=== PATIENT | female | born 1965 | race Caucasian/White ===

== ENCOUNTER → 2020-09-09 14:34 | Outpatient (BNVA) | payer OTHER, SELFPAY | PROVIDERS: PCP Internal Medicine; Visit Provider Surgery ==

== ENCOUNTER → 2020-09-15 12:42 | Outpatient (BNV) | payer OTHER, SELFPAY | PROVIDERS: PCP Internal Medicine; Visit Provider Internal Medicine Medical Oncology | DX: M89.8X9 Other specified disorders of bone, unspecified site (principal); Z85.3 Personal history of malignant neoplasm of breast; D75.1 Secondary polycythemia | CPT/HCPCS: 99213; 99214 ==

== ENCOUNTER 2020-10-01 08:48 | Outpatient (REF) | payer OTHER, SELFPAY ==
[2020-10-01 09:02] LABS: MANUAL DIFF FLAG NO
[2020-10-01 09:05] LABS: Basophils Absolute Auto 0.1 X10*3/uL (0.0-0.2); Basophils Percent Auto 0.8 % (0-2); Eosinophils Absolute Auto 0.1 X10*3/uL (0.0-0.4); Eosinophils Percent Auto 2.1 % (0-4); Hematocrit 44.6 % (37-47); Imm Gran Abs Auto 0.01 X10*3/uL (0.00-0.03); Imm Gran Pct Auto 0.2 % (0.0-0.4); Lymphocytes Absolute Auto 1.3 X10*3/uL (1.2-4.9); Lymphocytes Percent Auto 20.7 % (20-40); Mean Corpuscular HGB Conc 33.6 g/dl (31.0-35.0); Mean Corpuscular Hemoglobin 30.5 pg (27.0-33.0); Mean Corpuscular Volume 90.7 fL (80-98); Mean Platelet Volume 9.7 fL (9.4-12.3); Monocytes Absolute Auto 0.4 X10*3/uL (0.1-1.2); Monocytes Percent Auto 6.5 % (2-11); Neutrophils Absolute Auto 4.4 X10*3/uL (2.0-8.3); Neutrophils Percent Auto 69.7 % (45-73); Platelet Count 204 X10*3/uL (160-400); Red Blood Count 4.92 X10*6/uL (4.20-5.50); White Blood Count 6.3 X10*3/uL (4.8-10.8)
== END 2020-10-01 08:49 | disposition home or self-care (01) ==
LOC: HO.BBR 08:48
PROVIDERS: Visit Provider Internal Medicine Medical Oncology
DX: D75.1 Secondary polycythemia (principal)
CPT/HCPCS: 36415; 85014; 85018; 85025; 99195

== ENCOUNTER 2020-10-01 09:51 | Outpatient (REF) | payer OTHER, SELFPAY | END 2020-10-01 09:52 | disposition home or self-care (01) | LOC: HO.MAMMO 09:51 | PROVIDERS: PCP Internal Medicine; Visit Provider Internal Medicine | DX: Z13.89 Encounter for screening for other disorder (principal) ==

== ENCOUNTER 2020-10-11 08:29 | Outpatient (REF) | payer OTHER, SELFPAY ==
--- NOTE | ~2020-10-11 | MM_ITS ---
EXAMINATION: MM SCREENING DIGITAL BREAST TOMOSYNTHESIS, RIGHT CLINICAL INFORMATION: Right breast cancer status post lumpectomy 2009. 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 COMPARISON: Mammography: 10/06/2019, 09/30/2018, 09/19/2017, 09/14/2016 TECHNIQUE: Digital breast tomosynthesis is performed in both the craniocaudal and mediolateral oblique views along with computer-aided detection (CAD). Synthesized 2D images are generated from the tomosynthesis. FINDINGS: There are scattered areas of fibroglandular density (ACR BI-RADS breast composition Category b). There are post therapy changes with chronic mild scarring upper outer quadrant with benign dystrophic calcification within the scar along with surgical clips. The remainder of the breast is unremarkable. There is no developing density or interval mass or architectural abnormality or abnormal calcifications. No significant changes. MM/MM tomosynthesis screening RT IMPRESSION: No mammographic evidence of malignancy. ASSESSMENT: BI-RADS 2: Benign RECOMMENDATION: Routine annual mammography screening. This patient's information was entered into a reminder system with a target due date for their next mammogram.
== END 2020-10-11 08:30 | disposition home or self-care (01) ==
LOC: HO.MAMMO 08:29
PROVIDERS: Visit Provider Internal Medicine
DX: Z12.31 Encounter for screening mammogram for malignant neoplasm of breast (principal)
CPT/HCPCS: 77063; 77067

== ENCOUNTER 2020-10-15 14:01 | Outpatient (REF) | payer OTHER, SELFPAY ==
--- NOTE | ~2020-10-15 | MM_ITS ---
EXAMINATION: BONE DENSITOMETRY CLINICAL INDICATION: Bone loss. COMPARISON: Previous BD dated 10/27/2028 and baseline BD dated 08/19/2010. TECHNIQUE: Using a [employer] DXA System (software version: 13.1) manufactured by [employer], dual-energy x-ray absorptiometry was performed of the lumbar spine and left hip. The images are of good technical quality. Summary results are attached. FINDINGS: AP SPINE L1-L4: Current: BMD 1.066 g/cm2, Z-score -0.2, T-score -1.0, normal, 3.0% decrease from previous, 16.3% decrease from baseline (<5% change is not significant). Prior: BMD 1.099 g/cm2. Baseline: BMD 1.274 g/cm2. LEFT FEMUR, NECK: Current: BMD 0.867 g/cm2, Z-score -0.3, T-score -1.2, osteopenia. Prior: BMD 1.005 g/cm2. Baseline: BMD 1.146 g/cm2. LEFT FEMUR, TOTAL: Current: BMD 0.885 g/cm2, Z-score -0.4, T-score -1.0, normal, 13.6% decrease from previous, 20.8% decrease from baseline (<5% change is not significant). Prior: BMD 1.024 g/cm2. Baseline: BMD 1.118 g/cm2. IDENTIFIED RISK FACTORS: Early menopause, secondary osteoporosis. HISTORY OF FRACTURE: Fall, trauma, child. MEDICATIONS: Calcium supplements or multivitamin, vitamin D. MM/XR DEXA axial skeleton IMPRESSION: 1. DIAGNOSIS: Osteopenia based on the lowest T-score value of -1.2 in the femoral neck applying World Health Organization criteria. 2. 10-YEAR FRACTURE RISK PREDICTION, FRAX: Major osteoporotic fracture (clinical spine, forearm, hip or shoulder) 6.4%. Hip fracture 0.4%. 3. Treatment Recommendations: NOF guidelines recommend consideration for treatment in postmenopausal women and men age 50 and older presenting with the following: -A hip or vertebral (clinical or morphometric) fracture. -T-score less than or equal to -2.5 at the femoral neck or spine after appropriate evaluation to exclude secondary causes. -Low bone mass at the hip or spine and a 10-year fracture probability by FRAX of greater than or equal to 3% for hip fracture or greater than or equal to 20% for major osteoporotic fracture based on the [place] adapted WHO algorithm. 4. Other Recommendations: All treatment decisions require clinical judgment and consideration of individual patient factors, including patient preferences, comorbidities, previous drug use, risk factors not captured in the FRAX model (e.g. frailty, falls, vitamin D deficiency, increased bone turnover, interval significant decline in bone density) and possible under or overestimation of fracture risk by FRAX. Additional medical evaluation for secondary cause of low bone mineral density may be appropriate. FUTURE SCAN RECOMMENDATION: People with diagnosed cases of osteoporosis or at high risk for fracture should have regular bone mineral density tests. For patients eligible for Medicare, routine testing is allowed once every 2 years. The testing frequency can be increased to one year for patients who have rapidly progressing disease, those who are receiving or discontinuing medical therapy to restore bone mass, or have additional risk factors.
== END 2020-10-15 14:02 | disposition home or self-care (01) ==
LOC: HO.MAMMO 14:01
PROVIDERS: Visit Provider Internal Medicine Medical Oncology
DX: Z13.820 Encounter for screening for osteoporosis (principal); M89.8X9 Other specified disorders of bone, unspecified site; Z78.0 Asymptomatic menopausal state; Z79.899 Other long term (current) drug therapy
CPT/HCPCS: 77080

== ENCOUNTER → 2021-03-23 09:00 | Outpatient (BNVA) | payer OTHER, SELFPAY | PROVIDERS: PCP Internal Medicine; Referring Provider Internal Medicine; Visit Provider Surgery ==

== ENCOUNTER 2021-04-01 15:35 | Outpatient (REF) | payer OTHER, SELFPAY ==
[2021-04-01 15:50] LABS: MANUAL DIFF FLAG NO
[2021-04-01 15:52] LABS: Basophils Percent Auto 0.5 % (0-2); Eosinophils Absolute Auto 0.1 X10*3/uL (0.0-0.4); Hematocrit 38.2 % (37-47); Hemoglobin 12.8 g/dl (12.0-16.0); Imm Gran Abs Auto 0.01 X10*3/uL (0.00-0.03); Imm Gran Pct Auto 0.2 % (0.0-0.4); Lymphocytes Absolute Auto 1.6 X10*3/uL (1.2-4.9); Lymphocytes Percent Auto 26.8 % (20-40); Mean Corpuscular HGB Conc 33.5 g/dl (31.0-35.0); Mean Corpuscular Hemoglobin 30.6 pg (27.0-33.0); Mean Corpuscular Volume 91.4 fL (80-98); Mean Platelet Volume 9.5 fL (9.4-12.3); Monocytes Absolute Auto 0.5 X10*3/uL (0.1-1.2); Monocytes Percent Auto 8.4 % (2-11); Neutrophils Absolute Auto 3.6 X10*3/uL (2.0-8.3); Neutrophils Percent Auto 62.1 % (45-73); Platelet Count 173 X10*3/uL (160-400); Red Blood Count 4.18 X10*6/uL (4.20-5.50); Red Cell Distribution Width 12.6 % (11.0-16.0); White Blood Count 5.9 X10*3/uL (4.8-10.8)
[2021-04-01 16:23] LABS: Alanine Aminotransferase 20 U/L (0-31); Albumin Level 4.1 g/dL (3.5-5.0); Alkaline Phosphatase 68 U/L (39-117); Anion Gap 11 (12-20); Aspartate Amino Transferase 19 U/L (5-31); Bilirubin Total 0.4 mg/dL (0.0-1.0); Blood Urea Nitrogen 11 mg/dL (9-16); Calcium 8.9 mg/dL (8.4-10.2); Carbon Dioxide 23 mmol/L (22-29); Chloride 111 mmol/L (96-108); Estimated Glomerular Filt Rate 54; Glucose Random 100 mg/dL (60-115); Potassium 3.8 mmol/L (3.3-5.1); Sodium 141 mmol/L (135-145); Total Protein 6.4 g/dL (6.5-8.0)
== END 2021-04-01 15:36 | disposition home or self-care (01) ==
LOC: HO.BBR 15:35
PROVIDERS: PCP Internal Medicine; Visit Provider Internal Medicine Medical Oncology
DX: D75.1 Secondary polycythemia (principal)
CPT/HCPCS: 36415; 80053; 85014; 85018; 85025; 99195

== ENCOUNTER 2021-10-13 15:23 | Outpatient (REF) | payer OTHER, SELFPAY ==
--- NOTE | ~2021-10-13 | MM_ITS ---
EXAMINATION: MM SCREENING DIGITAL BREAST TOMOSYNTHESIS, RIGHT CLINICAL INFORMATION: Left DCIS, status post mastectomy 10/31/2019. Right breast cancer status post lumpectomy, 2009. Due for yearly. COMPARISON: Mammography: 10/11/2020, 10/06/2019, 09/30/2018, 09/19/2017 TECHNIQUE: Digital breast tomosynthesis is performed in both the craniocaudal and mediolateral oblique views along with computer-aided detection (CAD). Synthesized 2D images are generated from the tomosynthesis. FINDINGS: There are scattered areas of fibroglandular density (ACR BI-RADS breast composition Category b). Post lumpectomy changes are again seen with stable scarring, surgical clips, and dystrophic calcifications at the lumpectomy site. There is no interval mass or architectural abnormality or developing density. No significant changes from prior studies. MM/MM tomosynthesis screening RT IMPRESSION: No significant changes from prior exams. Post surgical changes, stable. ASSESSMENT: BI-RADS 2: Benign RECOMMENDATION: Routine annual mammography screening. This patient's information was entered into a reminder system with a target due date for their next mammogram.
== END 2021-10-13 15:24 | disposition home or self-care (01) ==
LOC: HO.MAMMO 15:23
PROVIDERS: PCP Internal Medicine; Visit Provider Obstetrics & Gynecology
DX: Z12.31 Encounter for screening mammogram for malignant neoplasm of breast (principal)
CPT/HCPCS: 77063; 77067

== ENCOUNTER → 2021-10-14 15:31 | Outpatient (BNVA) | payer OTHER, SELFPAY | PROVIDERS: PCP Internal Medicine; Referring Provider Internal Medicine; Visit Provider Surgery ==

== ENCOUNTER 2021-10-20 14:11 | Outpatient (REF) | payer OTHER, SELFPAY | END 2021-10-20 14:12 | disposition home or self-care (01) | LOC: HO.BBR 14:11 | PROVIDERS: Visit Provider Internal Medicine Medical Oncology | DX: D75.1 Secondary polycythemia (principal) | CPT/HCPCS: 85018; 99195 ==

== ENCOUNTER 2022-02-16 09:38 | Outpatient (REF) | payer OTHER, SELFPAY ==
[2022-02-16 09:54] LABS: MANUAL DIFF FLAG NO
[2022-02-16 10:32] LABS: Basophils Absolute Auto 0.1 X10*3/uL (0.0-0.2); Eosinophils Absolute Auto 0.2 X10*3/uL (0.0-0.4); Eosinophils Percent Auto 4.7 % (0-4); Hematocrit 43.4 % (37.0-47.0); Hemoglobin 14.2 g/dl (12.0-16.0); Imm Gran Abs Auto 0.01 X10*3/uL (0.00-0.03); Imm Gran Pct Auto 0.2 % (0.0-0.4); Lymphocytes Absolute Auto 1.4 X10*3/uL (1.2-4.9); Lymphocytes Percent Auto 27.6 % (20-40); Mean Corpuscular HGB Conc 32.7 g/dl (31.0-35.0); Mean Corpuscular Hemoglobin 28.8 pg (27.0-33.0); Mean Platelet Volume 10.4 fL (9.4-12.3); Monocytes Absolute Auto 0.4 X10*3/uL (0.1-1.2); Monocytes Percent Auto 6.8 % (2-11); Neutrophils Absolute Auto 3.1 x10*3/uL (2.0-8.3); Neutrophils Percent Auto 59.7 % (45-73); Platelet Count 179 X10*3/uL (160-400); Red Blood Count 4.93 X10*6/uL (4.20-5.50); Red Cell Distribution Width 13.8 % (11.0-16.0); White Blood Count 5.2 X10*3/uL (4.8-10.8)
[2022-02-16 11:14] LABS: Alanine Aminotransferase 15 U/L (0-31); Albumin Level 4.2 g/dL (3.5-5.0); Alkaline Phosphatase 75 U/L (39-117); Anion Gap 13 (12-20); Aspartate Amino Transferase 15 U/L (5-31); Bilirubin Total 0.3 mg/dL (0.0-1.0); Blood Urea Nitrogen 21 mg/dL (9-16); Calcium 9.1 mg/dL (8.4-10.2); Carbon Dioxide 22 mmol/L (22-29); Chloride 112 mmol/L (96-108); Cholesterol 233 mg/dL; Estimated Glomerular Filt Rate > 60; Glucose Fasting 106 mg/dL (60-99); HDL Cholesterol 61 mg/dL; LDL Cholesterol Calculated 155 mg/dl; Magnesium 2.1 mg/dL (1.6-2.6); Potassium 4.7 mmol/L (3.3-5.1); Sodium 142 mmol/L (135-145); Total Protein 6.7 g/dL (6.5-8.0); Triglycerides 87 mg/dL
[2022-02-16 11:28] LABS: TSH reflex Free T4 1.61 uIU/mL (0.32-4.0); Vitamin D 25-OH Total 50.2 ng/mL (>30)
[2022-02-16 12:09] LABS: Folate 7.3 ng/mL (> or = 4.0); Vitamin B12 258 pg/mL (200-900)
[2022-02-18 12:32] LABS: SARS COV2 IgG NEGATIVE
[2022-02-20 08:51] LABS: CA 27.29 25 U/mL (<38)
== END 2022-02-16 09:39 | disposition home or self-care (01) ==
LOC: HO.LAB 09:38
PROVIDERS: Internal Medicine Medical Oncology; PCP Internal Medicine; Visit Provider Nurse Practitioner Family
DX: Z00.00 Encounter for general adult medical examination without abnormal findings (principal); Z13.29 Encounter for screening for other suspected endocrine disorder; M79.604 Pain in right leg; M79.605 Pain in left leg; E78.00 Pure hypercholesterolemia, unspecified; Z85.3 Personal history of malignant neoplasm of breast
CPT/HCPCS: 36415; 80053; 80061; 82306; 82607; 82746; 83735; 84443; 85025; 86300; 86769

== ENCOUNTER 2022-04-23 15:22 | Outpatient (REF) | payer OTHER, SELFPAY | END 2022-04-23 15:23 | disposition home or self-care (01) | LOC: HO.BBR 15:22 | PROVIDERS: Visit Provider Internal Medicine Medical Oncology | DX: D75.1 Secondary polycythemia (principal) | CPT/HCPCS: 85018; 99195 ==

== ENCOUNTER → 2022-09-23 14:15 | Outpatient (BNVA) | payer OTHER, SELFPAY | PROVIDERS: PCP Internal Medicine; Visit Provider Surgery | DX: Z13.89 Encounter for screening for other disorder (principal) ==

== ENCOUNTER 2022-10-19 15:13 | Outpatient (REF) | payer OTHER, SELFPAY ==
--- NOTE | ~2022-10-19 | MM_ITS ---
EXAMINATION: MM SCREENING DIGITAL BREAST TOMOSYNTHESIS, RIGHT CLINICAL INFORMATION: Screening. Asymptomatic. Patient is status post left mastectomy and right lumpectomy. COMPARISON: Mammography: October 13, 2021 and studies dating back to September 14, 2016 TECHNIQUE: Digital breast tomosynthesis is performed in both the craniocaudal and mediolateral oblique views along with computer-aided detection (CAD). Synthesized 2D images are generated from the tomosynthesis. FINDINGS: There are scattered areas of fibroglandular density (ACR BI-RADS breast composition Category b). Stable architectural distortion from previous surgery noted. No new abnormal dominant mass or suspicious grouping of microcalcifications appreciated. MM/MM tomosynthesis screening RT IMPRESSION: No significant changes from prior exam. ASSESSMENT: BI-RADS 2: Benign RECOMMENDATION: Routine annual mammography screening. This patient's information was entered into a reminder system with a target due date for their next mammogram.
== END 2022-10-19 15:14 | disposition home or self-care (01) ==
LOC: HO.MAMMO 15:13
PROVIDERS: PCP Internal Medicine; Visit Provider Internal Medicine
DX: Z12.31 Encounter for screening mammogram for malignant neoplasm of breast (principal)
CPT/HCPCS: 77063; 77067

== ENCOUNTER 2022-10-25 15:13 | Outpatient (REF) | payer OTHER, SELFPAY | END 2022-10-25 15:14 | disposition home or self-care (01) | LOC: HO.BBR 15:13 | PROVIDERS: PCP Internal Medicine; Visit Provider Internal Medicine Medical Oncology | DX: D75.1 Secondary polycythemia (principal) | CPT/HCPCS: 85018 ==

== ENCOUNTER → 2022-11-08 15:24 | Outpatient (BNVA) | payer OTHER, SELFPAY | PROVIDERS: PCP Internal Medicine; Visit Provider Surgery | DX: Z85.3 Personal history of malignant neoplasm of breast (principal) ==

== ENCOUNTER 2022-11-09 05:54 | Day surgery (SDC) | payer OTHER, SELFPAY ==
[2022-11-03 11:19] VITALS: BMI 29.2
--- NOTE | 2022-11-08 09:03 | HO.ANESPROP2 ---
HPI - Anesthesia Eval Consult details Narrative: 57yo F for Colonoscopy PMFSH Active Problems Active Problems: All Active Problems (Updated 09/23/22 @ 15:15 by Miguel Carbajal MD) Erythrocytosis (Acute) Skin lesion (Acute) Screening for diabetes mellitus (Acute) Adult general medical exam (Acute) Screening for hypothyroidism (Acute) Bilateral leg pain (Acute) Family history of colon cancer (Acute) Hypercholesterolemia (Acute) History of bilateral breast cancer (Acute) Past Medical History Medical History Family history of colon cancer History of bilateral breast cancer Hypercholesterolemia Family History Family History Father Hypertension Mother Hypertension Colon cancer Sister Kidney stone Brother High cholesterol Alcoholism Heart attack Maternal Aunt Colon cancer Surgical History Surgical History History of colonoscopy History of hysterectomy History of left mastectomy History of lumpectomy of right breast History of umbilical hernia repair Social History Social History Household Members: Spouse Housing: House Are you a primary floor care technician to a significant other at home: No Do you presently have visiting nurse or other home services: No Alcohol intake: current Alcohol intake frequency: other Alcohol type: wine Patient Tobacco Use Status: Never used Tobacco e-Cigarette/Vaping Use: Never Used Second Hand Smoke Exposure: No Use of substances other than those prescribed or required for medical reasons: No Are you DNR?: No Advance Directives: No Advance Directives Information Provided: Yes Advance Directives on File: No service: No Current occupational status: employed Cognitive needs: No Hearing needs: No Vision needs: Yes Meds Allergies Allergy/AdvReac Type Severity Reaction Status Date / Time No Known Allergies Allergy Verified 11/08/22 15:37 [No Known Allergies*] Home Medications Medication Instructions Recorded Confirmed Last Taken Type ascorbic acid (vitamin C) 500 mg 500 mg PO DAILY 11/03/22 11/09/22 Unknown History tablet,extended release (Vitamin C ER) [id number] 1 ea PO DAILY 11/03/22 11/09/22 Unknown History 20-250-50 mg(d)20-200-100 mg(n) tablets (Black Cohosh Menopause Complex) bromelains 100 mg chewable tablet 200 mg PO DAILY 11/03/22 11/09/22 Unknown History calcium carbonate 500 mg calcium 500 mg PO DAILY 11/03/22 11/09/22 Unknown History (1,250 mg) tablet cholecalciferol (vitamin D3) 10 10 mcg PO DAILY 11/03/22 11/09/22 Unknown History mcg (400 unit) capsule (Vitamin D3) citalopram 20 mg tablet 1 tab PO DAILY 11/03/22 11/09/22 Unknown History exemestane 25 mg tablet 25 mg PO DAILY 11/03/22 11/09/22 Unknown History magnesium 200 mg tablet 200 mg PO DAILY 11/03/22 11/09/22 Unknown History multivitamin 1 tab PO DAILY 11/03/22 11/09/22 Unknown History rosuvastatin 10 mg tablet 1 tab PO DAILY 11/03/22 11/09/22 Unknown History Exam Exam Date and Time: November 08, 2022 0903 Height,Weight and Vital Signs: Height 5 ft 3 in Weight 74.956 kg Pertinent Lab Results Pertinent Lab Results: Laboratory Tests 09/09/22 09/09/22 14:06 14:06 WBC 6.0 Hgb 14.4 Hct 43.6 Plt Count 208 Sodium 139 Potassium 4.0 Chloride 105 Carbon Dioxide 28 BUN 14 Creatinine 0.86 Assessment and Plan Assessment Anesthesia Assessment: Chart Reviewed
[2022-11-09 06:28] VITALS: BP 107/73; PULSE 62; RESP 16; TEMP 36.1; O2SAT 97
[2022-11-09] MEDS: Lactated Ringers 1,000 ML 100 ML IVCONT (06:39)
--- NOTE | 2022-11-09 07:22 | MHC.SHP ---
Pre-Procedural Eval Section A Date of Service: 11/09/22 Section B Chief Complaint: Family history of malignant neoplasm of digestive Details of Present Illness: has family history of colon cancer Relevant Social History: None Present Medications: None Medical History: Significant History ( hyperlipidemia, erythrocytosis) Allergies: Allergies Allergy/AdvReac Type Severity Reaction Status Date / Time No Known Allergies Allergy Verified 11/08/22 15:37 [No Known Allergies*] Review of Systems Sugical H&P ROS: Negative: Constitution, Cardiovascular, Respiratory, Neurological, Psychiatric, Hem-Onc, Allergic/Immunologic, Gastrointestinal, Genitourinary, Musculoskeletal, Integumentary, Endocrine and Eyes/Ears/Nose/Throat Exam Surgical H&P Exam: Normal: HEENT, Normal: Heart, Normal: Lungs, Normal: Extremities, Normal: Abdomen, Normal: Skin and Normal: Neurological Plan Diagnosis/Plan: Unchanged I have reviewed the history and physical and performed a pertinent physical examination on my patient. No changes have occurred unless specified. Time Spent With Patient Time: Total time managing care of this patient today ____ minutes.
--- NOTE | 2022-11-09 07:24 | MHC.SHP ---
Pre-Procedural Eval Section A Date of Service: 11/09/22 Section B Chief Complaint: Family history of malignant neoplasm of digestive Allergies: Allergies Allergy/AdvReac Type Severity Reaction Status Date / Time No Known Allergies Allergy Verified 11/08/22 15:37 [No Known Allergies*] Plan I have reviewed the history and physical and performed a pertinent physical examination on my patient. No changes have occurred unless specified. Time Spent With Patient Time: Total time managing care of this patient today ____ minutes.
--- NOTE | 2022-11-09 08:10 | W.PM.OPN ---
Operative Note Operative Note Date of Service: 11/09/22 Narrative: Preop diagnosis: Family history of colon cancer Postop diagnosis:external hemorrhoids, otherwise normal colonoscopy findings Procedure: Colonoscopy surgeon: Miguel Carbajal MD The patient is a 57-year-old female with a strong family history of colon cancer here for screening colonoscopy. She understood the technique of the procedure. She was aware of the risks, benefits, and alternatives. The patient was brought to the operating room and placed in left lateral decubitus position under monitored anesthesia care. A surgical time-out was done. A full digital rectal exam was done and this did not reveal any significant anal lesions. The tip of the Olympus colonoscope was gently introduced through the anal orifice advanced with insufflation all the way to the cecum. The cecum was intubated. The cecum was identified by visualization of the ileocecal valve as well as the appendiceal orifice. The cecal mucosa was unremarkable. The scope was gradually withdrawn with careful examination of the entire colonic mucosa being done with scope withdrawal. The patient had adequate bowel prep so it was unlikely that any lesion may have been missed. The rectum was reached and there were no lesions seen. The anal canal was unremarkable except for prominent external hemorrhoids. The scope was then withdrawn completely with desufflation The patient tolerated the procedure well. There were no immediate complications. Her next colonoscopy may be in the next 5 years because of her family history.
[2022-11-09 08:16] VITALS: BP 107/68; PULSE 82; RESP 16; TEMP 36.7; O2SAT 95
[2022-11-09 08:38] VITALS: BP 103/74; PULSE 70; RESP 16; TEMP 36.7; O2SAT 96
== END 2022-11-09 09:06 | disposition home or self-care (01) ==
PROVIDERS: PCP Internal Medicine; Visit Provider Surgery
PROC: 0DJD8ZZ Inspection of Lower Intestinal Tract, Via Natural or Artificial Opening Endoscopic (ICD-10-PCS; CPT 45378; principal; 2022-11-09 07:30)
DX: Z12.11 Encounter for screening for malignant neoplasm of colon (principal); Z80.0 Family history of malignant neoplasm of digestive organs; K64.4 Residual hemorrhoidal skin tags; E78.00 Pure hypercholesterolemia, unspecified; Z79.899 Other long term (current) drug therapy
CPT/HCPCS: 45378

== ENCOUNTER 2023-01-25 15:13 | Outpatient (REF) | payer OTHER, SELFPAY | END 2023-01-25 15:14 | disposition home or self-care (01) | LOC: HO.BBR 15:13 | PROVIDERS: PCP Internal Medicine; Visit Provider Internal Medicine Medical Oncology | DX: D75.1 Secondary polycythemia (principal) | CPT/HCPCS: 85018; 99195 ==

== ENCOUNTER 2023-02-17 09:28 | Outpatient (AMB) | payer OTHER, SELFPAY ==
--- NOTE | 2023-02-17 09:30 | MHC.PC.OV ---
Vital Signs 02/17/23 09:32 Height 5 ft 3 in Weight 167 lb 8 oz BMI 29.7 BP 110/70 Blood Pressure Location Lt brachial Position Sitting Pulse 70 Pulse Source Pulse Oximeter Pulse Oximetry (%) 97 Oxygen Delivery Method Room Air Intake Visit Reasons: Annual Exam Intake Note: Patient is here today for a physical. Elephant Keeper Required: No Melter Supervisor Open Hearth Furnace: Not Required per policy Accompanied by: Self / Same As Patient Allergies No Known Allergies [No Known Allergies*] Allergy (Verified 03/04/23 15:35) Medication List - Last Reconciled 03/04/23 by Dereck Bettencourt MD ascorbic acid (vitamin C) ER (Vitamin C ER) 500 mg PO DAILY [id number] 20-250-50(d)/20 -200-100 mg (n) (Black Cohosh Menopause Complex) 1 ea PO DAILY bromelains 200 mg PO DAILY calcium carbonate 500 mg PO DAILY cholecalciferol (vitamin D3) (Vitamin D3) 10 mcg PO DAILY exemestane 25 mg PO DAILY magnesium 200 mg PO DAILY multivitamin 1 tab PO DAILY rosuvastatin 10 mg PO DAILY varicella-zoster gE-AS01B (PF) 50 mcg/0.5 mL (Shingrix (PF)) 0.5 mL IM ONCE Tobacco use date assessed: 02/17/23 Dental Screening Dental Screen Date: 02/17/23 Did you have a dental visit in the last 12 months?: Yes Did you have a dental problem in the last 6 months where you did not have access to dental care?: No Was dental information given to patient?: Patient has dentist HPI Annual Exam HPI Details Patient presents to the office requesting an annual physical. Patient has stop the citalopram 3 months ago. Patient is requesting physical therapy for right leg pain. [facility] Medical History Family history of colon cancer History of bilateral breast cancer Hypercholesterolemia Surgical History History of colonoscopy History of hysterectomy History of left mastectomy History of lumpectomy of right breast History of umbilical hernia repair Family History Father Hypertension Mother Hypertension Colon cancer Mental health disorder Sister Kidney stone Brother High cholesterol Alcoholism Heart attack Maternal Aunt Colon cancer Other Substance use disorder Social History Household Members: Spouse Housing: House Are you a primary career guidance technician to a significant other at home: No Do you presently have visiting nurse or other home services: No Alcohol intake: current Alcohol intake frequency: other Alcohol type: wine Patient Tobacco Use Status: Never used Tobacco e-Cigarette/Vaping Use: Never Used Second Hand Smoke Exposure: No service: No Current occupational status: employed Cognitive needs: No Hearing needs: No Vision needs: Yes Questionnaire PHQ-9 Over the last 2 weeks, how often have you been bothered by any of the following problems? 1. Little interest or pleasure in doing things: not at all 2. Feeling down, depressed, or hopeless: not at all 3. Trouble falling or staying asleep, or sleeping too much: not at all 4. Feeling tired or having little energy: not at all 5. Poor appetite or overeating: not at all 6. Feeling bad about yourself - or that you are a failure or have let yourself or your family down: not at all 7. Trouble concentrating on things, such as reading the newspaper or watching television: not at all 8. Moving or speaking so slowly that other people could have noticed. Or the opposite - being so fidgety or restless that you have been moving around a lot more than usual: not at all 9. Thoughts that you would be better off or of hurting yourself in some way: not at all Total score: 0 Depression Screening Interpretation: Negative Source: Developed by Drs. Keenan Melgoza, Mandy Ocasio, Jean Laura and colleagues, with an educational joselito from [employer]. Thrive Questionnaire Date Thrive assessed: 02/17/23 I am a: Patient What is your living situation today?: I have a steady place to live Within the past 12 months, did the food you bought not last and you didn't have the money to get more?: Never true Within the past 12 months, did you worry whether your food would run out before you got money to buy more?: Never true Do you have trouble paying for medicines?: No Do you have trouble getting transportation to medical appointments?: No Do you have trouble paying your heating and electricity bill?: No Do you have trouble taking care of your child, family member or friend?: No Do you have trouble with day-to-day activities such as bathing, preparing meals, shopping, managing finances, etc.?: No Are you currently unemployed and looking for a job?: No Are you interested in more education?: No Currently or been in a relationship where the following occur: no concerns reported AUDIT C Alcohol Use Questionnaire (AUDIT-C) 1. How often do you have a drink containing alcohol?: 2-4 times a month 2. How many drinks containing alcohol do you have on a typical day when you are drinking?: 1 or 2 Total Score: 2 REGULO-7 AMB Questionnaire REGULO-7 Date REGULO - 7 assessed: 02/17/23 Feeling nervous, anxious, or on edge: 0 = Not at all Not being able to stop or control worryin = Not at all Worrying too much about different things: 0 = Not at all Trouble relaxin = Not at all Being so restless that it is hard to sit still: 0 = Not at all Becoming easily annoyed or irritable: 0 = Not at all Feeling afraid as if something awful might happen: 0 = Not at all Total REGULO-7 score (0-4 normal; 5-9 mild; 10-14 moderate; 15-21 severe): 0 Source: Developed by Drs. Keenan Melgoza, Mandy Ocasio, Jean Laura and colleagues, with an educational joselito from [employer]. Physical exam (Primary Care) Vital Signs: Last Vital Signs Pulse 70 02/17/23 09:32 BP 110/70 02/17/23 09:32 Pulse Ox 97 02/17/23 09:32 Oxygen Delivery Method Room Air 02/17/23 09:32 BMI result Body Mass Index 29.7 Tobacco/Smoking Status: Tobacco use Status Tobacco use date assessed 02/17/23 02/17/23 09:50 Patient Tobacco Use Status Never used Tobacco 02/17/23 09:50 e-Cigarette/Vaping Use Never Used 02/17/23 09:50 PHQ-9: PHQ-9 Score PHQ-9: Total score 0 02/17/23 09:50 Depression Screening Interpretation: Negative Thrive Assessment: Date of Thrive Assessment Date Thrive assessed 02/17/23 02/17/23 09:50 Currently or been in a relationship where the following occur: no concerns reported Const General: cooperative, healthy appearing and comfortable HENMT Head: Yes normal to inspection and Yes atraumatic Eyes General: appearance normal, both eyes and all related structures Neck Neck: Yes normal visual inspection and Yes full ROM Chest Chest palpation & inspection: normal inspection of the chest Resp Effort & Inspection: normal respiratory effort Auscultation: clear to auscultation bilaterally Cardio Jugular venous distension: no JVD Palpation: normal PMI Rate: regular rate Heart sounds: S1 normal heart sound present and S2 normal heart sound present GI Palpation (GI): Soft to palpation and No hepatosplenomegaly present Extrem General: Yes normal to inspection and Yes full ROM Assessment and Plan Assessment & Plan (1) Hypercholesterolemia: Comment: Blood work ordered. Will call with results. Code(s): E78.00 - Pure hypercholesterolemia, unspecified (2) Adult general medical exam: Code(s): Z00.00 - Encounter for general adult medical examination without abnormal findings Orders: Orders Lipid Panel 02/21/23 E78.00 - Pure hypercholesterolemia, unspecified Medications: New varicella-zoster gE-AS01B (PF) 50 mcg/0.5 mL (Shingrix (PF)) 0.5 mL IM ONCE 1 ea 0RF Coding Level of Care Code Est Pt Prev Care 40-64y(46696) Diagnoses Hypercholesterolemia E78.00 Adult general medical exam Z00.00
[2023-02-17 09:32] VITALS: BP 110/70; PULSE 70; O2SAT 97; BMI 29.7
== END 2023-02-17 10:09 | disposition home or self-care (01) ==
PROVIDERS: PCP Internal Medicine; Visit Provider Internal Medicine
DX: E78.00 Pure hypercholesterolemia, unspecified (principal); Z00.00 Encounter for general adult medical examination without abnormal findings
CPT/HCPCS: 99396

== ENCOUNTER 2023-02-21 09:44 | Outpatient (REF) | payer OTHER, SELFPAY | END 2023-02-21 09:45 | disposition home or self-care (01) | LOC: HO.LAB 09:44 | PROVIDERS: PCP Internal Medicine; Visit Provider Internal Medicine | DX: E78.00 Pure hypercholesterolemia, unspecified (principal) | CPT/HCPCS: 36415; 80061 ==

== ENCOUNTER 2023-03-29 13:59 | Outpatient (REF) | payer OTHER, SELFPAY ==
--- NOTE | ~2023-03-29 | MM_ITS ---
EXAMINATION: BONE DENSITOMETRY CLINICAL INDICATION: Follow up on bone mineral density. COMPARISON: Previous BD dated 10/15/2020 and baseline BD dated 08/19/2010. TECHNIQUE: Using a [employer] DXA System (software version: 13.1) manufactured by [employer], dual-energy x-ray absorptiometry was performed of the lumbar spine and left hip. The images are of good technical quality. Summary results are attached. FINDINGS: LEFT FEMUR, NECK: Current: BMD 0.756 g/cm2, Z-score -1.0, T-score -2.0, osteopenia. Prior: BMD 0.867 g/cm2. Baseline: BMD 1.146 g/cm2. LEFT FEMUR, TOTAL: Current: BMD 0.782 g/cm2, Z-score -1.2, T-score -1.8, osteopenia, 11.6% decrease from previous, 30.1% decrease from baseline (<5% change is not significant). Prior: BMD 0.885 g/cm2. Baseline: BMD 1.118 g/cm2. AP SPINE L1-L4: Current: BMD 1.018 g/cm2, Z-score -0.6, T-score -1.4, osteopenia, 4.5% decrease from previous, 20.1% decrease from baseline (<5% change is not significant). Prior: BMD 1.066 g/cm2. Baseline: BMD 1.274 g/cm2. IDENTIFIED RISK FACTORS: Menopause, hysterectomy. HISTORY OF FRACTURE: None listed. MEDICATIONS: Calcium or multivitamin. Vitamin D, ERT/SERMS. MM/XR DEXA axial skeleton IMPRESSION: 1. DIAGNOSIS: Osteopenia based on the lowest T-score value of -2.0 in the femoral neck applying World Health Organization criteria. 2. 10-YEAR FRACTURE RISK PREDICTION, FRAX: Not performed in this patient on estrogen or bone building treatments. 3. Treatment Recommendations: NOF guidelines recommend consideration for treatment in postmenopausal women and men age 50 and older presenting with the following: -A hip or vertebral (clinical or morphometric) fracture. -T-score less than or equal to -2.5 at the femoral neck or spine after appropriate evaluation to exclude secondary causes. -Low bone mass at the hip or spine and a 10-year fracture probability by FRAX of greater than or equal to 3% for hip fracture or greater than or equal to 20% for major osteoporotic fracture based on the [place] adapted WHO algorithm. 4. Other Recommendations: All treatment decisions require clinical judgment and consideration of individual patient factors, including patient preferences, comorbidities, previous drug use, risk factors not captured in the FRAX model (e.g. frailty, falls, vitamin D deficiency, increased bone turnover, interval significant decline in bone density) and possible under or overestimation of fracture risk by FRAX. Additional medical evaluation for secondary cause of low bone mineral density may be appropriate. FUTURE SCAN RECOMMENDATION: People with diagnosed cases of osteoporosis or at high risk for fracture should have regular bone mineral density tests. For patients eligible for Medicare, routine testing is allowed once every 2 years. The testing frequency can be increased to one year for patients who have rapidly progressing disease, those who are receiving or discontinuing medical therapy to restore bone mass, or have additional risk factors.
== END 2023-03-29 14:00 | disposition home or self-care (01) ==
LOC: HO.MAMMO 13:59
PROVIDERS: PCP Internal Medicine; Visit Provider Internal Medicine Medical Oncology
DX: Z13.820 Encounter for screening for osteoporosis (principal); Z78.0 Asymptomatic menopausal state; Z85.3 Personal history of malignant neoplasm of breast
CPT/HCPCS: 77080

== ENCOUNTER 2023-05-12 14:41 | Outpatient (AMB) | payer OTHER, SELFPAY ==
--- NOTE | 2023-05-12 14:42 | MHC.OFFVIS ---
Intake Vital Signs 05/12/23 14:49 Height 5 ft 3 in Weight 168 lb BMI 29.8 BP 107/66 Blood Pressure Location Rt brachial Position Sitting Pulse 77 Intake Visit Reasons: 6 month breast exam Intake Note: This patient presents for a six month follow-up breast examination assessment. Patient c/o; reports soreness and tenderness surgical site. 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 She had a lumpectomy and sentinel biopsy for her right breast cancer in 2009, and a mastectomy with sentinel node biopsy as well in 2019 for left breast cancer. She is currently on exemestane. She says she is doing quite well and denies significant complaints. Her last mammogram was in September, and this was unremarkable. I yearly mammogram had been recommended by the radiologist from then. She denies any palpable breast masses or any nipple or skin changes. [facility] Medical History Family history of colon cancer Hypercholesterolemia History of bilateral breast cancer Surgical History History of left mastectomy History of colonoscopy History of umbilical hernia repair History of hysterectomy History of lumpectomy of right breast Family History Father Hypertension Mother Hypertension Colon cancer Mental health disorder Sister Kidney stone Brother High cholesterol Alcoholism Heart attack Maternal Aunt Colon cancer Other Substance use disorder Social History Household Members: Spouse Housing: House Are you a primary healthcare network pricing consultant to a significant other at home: No Do you presently have visiting nurse or other home services: No Alcohol intake: current Alcohol intake frequency: other Alcohol type: wine Patient Tobacco Use Status: Never used Tobacco e-Cigarette/Vaping Use: Never Used Second Hand Smoke Exposure: No service: No Current occupational status: employed Cognitive needs: No Hearing needs: No Vision needs: Yes Review of Systems Const Denies chills and Denies fever(s) Card Denies chest pain, Denies dyspnea and Denies dyspnea on exertion Resp Denies cough, Denies dyspnea and Denies dyspnea on exertion GI Denies hematochezia and Denies change in bowel habits Denies hematuria Musc Denies back pain and Denies limited range of motion Neuro Denies focal weakness and Denies convulsions Psych Denies depression and Denies mood swings Physical Exam Vital Signs: Last Vital Signs Pulse 77 05/12/23 14:49 BP 107/66 05/12/23 14:49 BMI result Body Mass Index 29.8 Const General: comfortable and no acute distress Orientation/consciousness: patient oriented x3 Neck Neck: Yes no lymphadenopathy Chest Other: Right breast exam with no palpable masses, no nipple or skin changes, no axillary lymphadenopathy, scar on the upper part Left mastectomy site well healed, no palpable masses, no axillary lymph nodes Resp Auscultation: clear to auscultation bilaterally Cardio Rhythm: regular rhythm GI Palpation (GI): Soft to palpation, nontender and no guarding Neuro General: patient oriented x3 Assessment & Plan Assessment & Plan (1) History of bilateral breast cancer: Code(s): Z85.3 - Personal history of malignant neoplasm of breast Plan: She has no palpable masses on the right breast. There is no axillary lymphadenopathy. Her mastectomy site does not show any masses or axillary lymphadenopathy as well. Her next mammogram is this September,. I will see her in the office after that. She remains on exemestane at this time. Coding Level of Care Code Est Pt Level 3 (61209) Diagnoses History of bilateral breast cancer Z85.3
[2023-05-12 14:49] VITALS: BP 107/66; PULSE 77; BMI 29.8
== END 2023-05-12 14:59 | disposition home or self-care (01) ==
PROVIDERS: PCP Internal Medicine; Visit Provider Surgery
DX: Z85.3 Personal history of malignant neoplasm of breast (principal)
CPT/HCPCS: 99213

== ENCOUNTER → 2023-05-12 14:41 | Outpatient (BNVA) | payer OTHER, SELFPAY | PROVIDERS: PCP Internal Medicine; Visit Provider Surgery ==

== ENCOUNTER 2023-07-25 14:47 | Outpatient (REF) | payer OTHER, SELFPAY | END 2023-07-25 14:48 | disposition home or self-care (01) | LOC: HO.BBR 14:47 | PROVIDERS: PCP Internal Medicine; Visit Provider Internal Medicine Medical Oncology | DX: D75.1 Secondary polycythemia (principal) | CPT/HCPCS: 85014; 85018; 99195 ==

== ENCOUNTER 2023-08-18 09:53 | Outpatient (AMB) | payer OTHER, SELFPAY ==
--- NOTE | 2023-08-18 09:57 | MHC.PC.OV ---
Vital Signs 08/18/23 09:59 Height 5 ft 3 in Weight 156 lb 4 oz BMI 27.7 BP 110/74 Blood Pressure Location Lt brachial Position Sitting Pulse 70 Pulse Source Pulse Oximeter Pulse Oximetry (%) 97 Oxygen Delivery Method Room Air Intake Visit Reasons: 6 month f/u Intake Note: Patient is here to follow up on Hypercholesterolemia. 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 Accompanied by: Self / Same As Patient Allergies No Known Allergies [No Known Allergies*] Allergy (Verified 08/29/23 05:11) Medication List - Last Reconciled 08/29/23 by Dercek Bettencourt MD ascorbic acid (vitamin C) ER (Vitamin C ER) 500 mg PO DAILY [id number] 20-250-50(d)/20 -200-100 mg (n) (Black Cohosh Menopause Complex) 1 ea PO DAILY bromelains 200 mg PO DAILY calcium carbonate 500 mg PO DAILY cholecalciferol (vitamin D3) (Vitamin D3) 10 mcg PO DAILY citalopram 10 mg PO DAILY exemestane 25 mg PO DAILY magnesium 200 mg PO DAILY multivitamin 1 tab PO DAILY rosuvastatin 10 mg PO DAILY Tobacco use date assessed: 08/18/23 Dental Screening Dental Screen Date: 08/18/23 Did you have a dental visit in the last 12 months?: Yes Did you have a dental problem in the last 6 months where you did not have access to dental care?: No Was dental information given to patient?: Patient has dentist HPI 6 month f/u HPI Details 58-year-old female presents to the office to discuss her chronic medical conditions. Patient is at baseline state of health. She is able to function and do all activities of daily living. Compliant with all her medications and reporting no side effects. Patient follows with a healthy diet and exercises regularly. Up-to-date on all of her flu vaccination. Patient follows intermittent fasting. [facility] Medical History Family history of colon cancer Hypercholesterolemia History of bilateral breast cancer Surgical History History of left mastectomy History of colonoscopy History of umbilical hernia repair History of hysterectomy History of lumpectomy of right breast Family History Father Hypertension Mother Hypertension Colon cancer Mental health disorder Sister Kidney stone Brother High cholesterol Alcoholism Heart attack Maternal Aunt Colon cancer Other Substance use disorder Social History Household Members: Spouse Housing: House Are you a primary animal care supervisor to a significant other at home: No Do you presently have visiting nurse or other home services: No Alcohol intake: current Alcohol intake frequency: other Alcohol type: wine Patient Tobacco Use Status: Never used Tobacco e-Cigarette/Vaping Use: Never Used Second Hand Smoke Exposure: No service: No Current occupational status: employed Cognitive needs: No Hearing needs: No Vision needs: Yes (glasses) Questionnaire Thrive Questionnaire Date Thrive assessed: 02/17/23 REGULO-7 AMB Questionnaire REGULO-7 Date REGULO - 7 assessed: 02/17/23 Source: Developed by Drs. Keenan Melgoza, Mandy Ocasio, Jean Laura and colleagues, with an educational joselito from [employer]. Physical exam (Primary Care) Vital Signs: Last Vital Signs Pulse 70 08/18/23 09:59 BP 110/74 08/18/23 09:59 Pulse Ox 97 08/18/23 09:59 Oxygen Delivery Method Room Air 08/18/23 09:59 BMI result Body Mass Index 27.7 Tobacco/Smoking Status: Tobacco use Status Tobacco use date assessed 08/18/23 08/18/23 10:03 Patient Tobacco Use Status Never used Tobacco 08/18/23 10:03 e-Cigarette/Vaping Use Never Used 08/18/23 10:03 Thrive Assessment: Date of Thrive Assessment Date Thrive assessed 02/17/23 08/18/23 10:03 Const General: cooperative and healthy appearing Nutritional Appearance: well nourished Orientation/consciousness: patient oriented x3 Limitations: no limitations HENMT Head: Yes normal to inspection Eyes General: appearance normal, both eyes and all related structures Neck Neck: Yes normal visual inspection Chest Chest palpation & inspection: normal palpation of entire chest wall Resp Effort & Inspection: normal respiratory effort Neuro General: patient oriented x3 Assessment and Plan Assessment & Plan (1) Hypercholesterolemia: Comment: Blood work ordered. Will call with results. Code(s): E78.00 - Pure hypercholesterolemia, unspecified Plan: Blood work is in range. 20 minute discussion on intermittent fasting. Medications refilled. If symptoms do not improve to follow-up here. Coding Level of Care Code Est Pt Level 4 (54231) Diagnoses Hypercholesterolemia E78.00
[2023-08-18 09:59] VITALS: BP 110/74; PULSE 70; O2SAT 97; BMI 27.7
== END 2023-08-18 10:42 | disposition home or self-care (01) ==
PROVIDERS: PCP Internal Medicine; Visit Provider Internal Medicine
DX: E78.00 Pure hypercholesterolemia, unspecified (principal)
CPT/HCPCS: 99214

== ENCOUNTER → 2023-10-21 15:00 | Outpatient (BNV) | payer OTHER, SELFPAY | PROVIDERS: Absent Provider Obstetrics & Gynecology; PCP Internal Medicine; Visit Provider Radiology Diagnostic Radiology | DX: Z12.31 Encounter for screening mammogram for malignant neoplasm of breast (principal) | CPT/HCPCS: 77063; 77067 ==

== ENCOUNTER 2023-10-21 15:06 | Outpatient (REF) | payer OTHER, SELFPAY ==
--- NOTE | ~2023-10-21 | MM_ITS ---
EXAMINATION: MM SCREENING DIGITAL BREAST TOMOSYNTHESIS, RIGHT CLINICAL INFORMATION: Screening. Asymptomatic. The patient is status post left mastectomy and right breast surgery for cancer. COMPARISON: Mammography: This study is compared with prior exams dating back to TECHNIQUE: Digital breast tomosynthesis is performed in both the craniocaudal and mediolateral oblique views along with computer-aided detection (CAD). Synthesized 2D images are generated from the tomosynthesis. FINDINGS: There are scattered areas of fibroglandular density (ACR BI-RADS breast composition Category b). There are no significant masses, abnormal calcifications, or other abnormalities. There are postsurgical changes in the upper outer quadrant of the right breast. MM/MM tomosynthesis screening RT IMPRESSION: No mammographic evidence of malignancy. ASSESSMENT: BI-RADS BI-RADS 2 - Benign Findings RECOMMENDATION: Routine annual mammography screening. 1 year F/U This examination should not preclude the clinical evaluation of a suspicious palpable abnormality. This patient's information was entered into a reminder system with a target due date for their next mammogram.
== END 2023-10-21 15:07 | disposition home or self-care (01) ==
LOC: HO.MAMMO 15:06
PROVIDERS: Absent Provider Obstetrics & Gynecology; PCP Internal Medicine; Visit Provider Internal Medicine
DX: Z12.31 Encounter for screening mammogram for malignant neoplasm of breast (principal)
CPT/HCPCS: 77063; 77067

== ENCOUNTER → 2023-10-31 15:52 | Outpatient (BNVA) | payer OTHER, SELFPAY | PROVIDERS: PCP Internal Medicine; Visit Provider Surgery ==

== ENCOUNTER 2023-11-10 10:08 | Outpatient (AMB) | payer OTHER, SELFPAY ==
--- NOTE | 2023-11-10 10:19 | A.OFFVIS_ITS ---
Intake Vital Signs 11/10/23 10:20 Height 5 ft 3 in Weight 159 lb BMI 28.2 BP 115/77 Blood Pressure Location Rt brachial Position Sitting Pulse 75 Intake Visit Reasons: 6 month breast exam Intake Note: Patient here for 6m breast exam. Patient c/o: no concerns no changes in medical hx since last visit. Mammo: 10-21-23. 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 Required: No Accompanied by: Self / Same As Patient Allergies No Known Allergies [No Known Allergies*] Allergy (Verified 11/10/23 10:21) Medication List - Last Reconciled 11/10/23 by Miguel Carbajal MD ascorbic acid (vitamin C) ER (Vitamin C ER) 500 mg PO DAILY [id number] 20-250-50(d)/20 -200-100 mg (n) (Black Cohosh Menopause Complex) 1 ea PO DAILY bromelains 200 mg PO DAILY calcium carbonate 500 mg PO DAILY cholecalciferol (vitamin D3) (Vitamin D3) 10 mcg PO DAILY citalopram 10 mg PO DAILY exemestane 25 mg PO DAILY magnesium 200 mg PO DAILY multivitamin 1 tab PO DAILY rosuvastatin 10 mg PO DAILY HPI 6 month breast exam HPI Details She is here for follow-up for history of breast cancer. She had a lumpectomy and sentinel biopsy for her right breast cancer in 2009, and a mastectomy with sentinel node biopsy as well in 2019 for left breast cancer. She is currently on exemestane. She says she is doing quite well and denies significant complaints. She says that this is her last year to be on exemestane. She had her yearly mammogram for the right breast last 10/21/2023. I have reviewed this and this was unremarkable and she is scheduled to have this once a year. [facility] Medical History Family history of colon cancer Hypercholesterolemia History of bilateral breast cancer Surgical History History of left mastectomy History of colonoscopy History of umbilical hernia repair History of hysterectomy History of lumpectomy of right breast Family History Father Hypertension Mother Hypertension Colon cancer Mental health disorder Sister Kidney stone Brother High cholesterol Alcoholism Heart attack Maternal Aunt Colon cancer Other Substance use disorder Social History Household Members: Spouse Housing: House Are you a primary child care aide to a significant other at home: No Do you presently have visiting nurse or other home services: No Alcohol intake: current Alcohol intake frequency: other Alcohol type: wine Patient Tobacco Use Status: Never used Tobacco e-Cigarette/Vaping Use: Never Used Second Hand Smoke Exposure: No service: No Current occupational status: employed Cognitive needs: No Hearing needs: No Vision needs: Yes (glasses) Review of Systems Const Denies chills and Denies fever(s) Card Denies chest pain, Denies dyspnea and Denies dyspnea on exertion Resp Denies cough, Denies dyspnea and Denies dyspnea on exertion GI Denies hematochezia and Denies change in bowel habits Denies hematuria Musc Denies back pain and Denies limited range of motion Neuro Denies focal weakness and Denies convulsions Psych Denies depression and Denies mood swings Physical Exam Vital Signs: Last Vital Signs Pulse 75 11/10/23 10:20 BP 115/77 11/10/23 10:20 BMI result Body Mass Index 28.2 Const General: comfortable and no acute distress Orientation/consciousness: patient oriented x3 Neck Neck: Yes no lymphadenopathy Chest Other: Right breast with no palpable breast mass, no axillary lymphadenopathy Left chest with mastectomy site, no palpable mass on the chest wall, no axillary lymphadenopathy Resp Auscultation: clear to auscultation bilaterally Cardio Rhythm: regular rhythm GI Palpation (GI): Soft to palpation, nontender and no guarding Neuro General: patient oriented x3 Assessment & Plan Assessment & Plan (1) History of bilateral breast cancer: Code(s): Z85.3 - Personal history of malignant neoplasm of breast Plan: She is doing very well. Current exam is unremarkable. Her mammogram from 10/21/2023 is unremarkable as well for the right breast She says that this is her last year to be on exemestane. I reminded her about her yearly mammogram next year. I will see her again in the office thereafter. She is to continue to follow up with Dr. Medley. Coding Level of Care Code New Pt Level 3 (23856) Diagnoses History of bilateral breast cancer Z85.3
[2023-11-10 10:20] VITALS: BP 115/77; PULSE 75; BMI 28.2
== END 2023-11-10 10:32 | disposition home or self-care (01) ==
PROVIDERS: PCP Internal Medicine; Visit Provider Surgery
DX: Z85.3 Personal history of malignant neoplasm of breast (principal)
CPT/HCPCS: 99213

== ENCOUNTER → 2023-11-10 10:08 | Outpatient (BNVA) | payer OTHER, SELFPAY | PROVIDERS: PCP Internal Medicine; Visit Provider Surgery ==

== ENCOUNTER 2023-11-18 08:57 | Outpatient (REF) | payer OTHER, SELFPAY | END 2023-11-18 08:58 | disposition home or self-care (01) | LOC: HO.BBR 08:57 | PROVIDERS: PCP Internal Medicine; Visit Provider Internal Medicine Medical Oncology | DX: D75.1 Secondary polycythemia (principal) | CPT/HCPCS: 85014; 85018; 99195 ==

== ENCOUNTER 2024-02-28 14:51 | Outpatient (AMB) | payer OTHER, SELFPAY ==
--- NOTE | 2024-02-28 14:58 | MHC.PC.OV ---
Vital Signs 02/28/24 15:01 Height 5 ft 3 in Weight 159 lb 8 oz BMI 28.3 BP 110/70 Blood Pressure Location Lt brachial Position Sitting Pulse 74 Pulse Source Pulse Oximeter Pulse Oximetry (%) 98 Oxygen Delivery Method Room Air Intake Visit Reasons: 3 month f/u Intake Note: Patient is here to follow up on Hypercholesterolemia, Osteoporosis. Cosmetic Sales Assistant Required: No Sales Operations Lead: Not Required per policy Accompanied by: Self / Same As Patient Allergies No Known Allergies [No Known Allergies*] Allergy (Verified 02/28/24 15:01) Tobacco use date assessed: 02/28/24 Dental Screening Dental Screen Date: 02/28/24 Did you have a dental visit in the last 12 months?: Yes Did you have a dental problem in the last 6 months where you did not have access to dental care?: No Was dental information given to patient?: Patient has dentist HPI 3 month f/u HPI Details 58-year-old female presents to the office to discuss her chronic medical conditions. Patient is compliant with medications and reporting no side effects. She is active physically and does a lot of exercises. A few weeks ago, she believes she overdid on her exercises. However the next day, she woke up with intense pain in both her lower extremity. This was a little more than her normal recovery pain. She wonders if this could be due to the statin use. Able to function and do all activities of daily living. Continues her intermittent fasting. [facility] Medical History Family history of colon cancer Hypercholesterolemia History of bilateral breast cancer Surgical History History of left mastectomy History of colonoscopy History of umbilical hernia repair History of hysterectomy History of lumpectomy of right breast Family History Father Hypertension Mother Hypertension Colon cancer Mental health disorder Sister Kidney stone Brother High cholesterol Alcoholism Heart attack Maternal Aunt Colon cancer Other Substance use disorder Social History Household Members: Spouse Housing: House Are you a primary daycare director to a significant other at home: No Do you presently have visiting nurse or other home services: No Alcohol intake: current Alcohol intake frequency: other Alcohol type: wine Patient Tobacco Use Status: Never used Tobacco e-Cigarette/Vaping Use: Never Used Second Hand Smoke Exposure: No service: No Current occupational status: employed Cognitive needs: No Hearing needs: No Vision needs: Yes (glasses) Questionnaire PHQ-9 Over the last 2 weeks, how often have you been bothered by any of the following problems? 1. Little interest or pleasure in doing things: not at all 2. Feeling down, depressed, or hopeless: not at all 3. Trouble falling or staying asleep, or sleeping too much: not at all 4. Feeling tired or having little energy: not at all 5. Poor appetite or overeating: not at all 6. Feeling bad about yourself - or that you are a failure or have let yourself or your family down: not at all 7. Trouble concentrating on things, such as reading the newspaper or watching television: not at all 8. Moving or speaking so slowly that other people could have noticed. Or the opposite - being so fidgety or restless that you have been moving around a lot more than usual: not at all 9. Thoughts that you would be better off or of hurting yourself in some way: not at all Total score: 0 Depression Screening Interpretation: Negative Depression Screening Done: Yes Source: Developed by Drs. Keenan Melgoza, Mandy Ocasio, Jean Laura and colleagues, with an educational joselito from [employer]. Thrive Questionnaire Date Thrive assessed: 02/28/24 I am a: Patient What is your living situation today?: I have a steady place to live Within the past 12 months, did the food you bought not last and you didn't have the money to get more?: Never true Within the past 12 months, did you worry whether your food would run out before you got money to buy more?: Never true Do you have trouble paying for medicines?: No Do you have trouble getting transportation to medical appointments?: No Do you have trouble paying your heating and electricity bill?: No Do you have trouble taking care of your child, family member or friend?: No Do you have trouble with day-to-day activities such as bathing, preparing meals, shopping, managing finances, etc.?: No Are you currently unemployed and looking for a job?: No Are you interested in more education?: No Currently or been in a relationship where the following occur: No concerns reported THRIVE Score: 0 AUDIT C Alcohol Use Questionnaire (AUDIT-C) 1. How often do you have a drink containing alcohol?: 2-4 times a month 2. How many drinks containing alcohol do you have on a typical day when you are drinking?: 1 or 2 Total Score: 2 REGULO-7 AMB Questionnaire REGULO-7 Date REGULO - 7 assessed: 02/28/24 Feeling nervous, anxious, or on edge: 0 = Not at all Not being able to stop or control worryin = Not at all Worrying too much about different things: 0 = Not at all Trouble relaxin = Not at all Being so restless that it is hard to sit still: 0 = Not at all Becoming easily annoyed or irritable: 0 = Not at all Feeling afraid as if something awful might happen: 0 = Not at all Total REGULO-7 score (0-4 normal; 5-9 mild; 10-14 moderate; 15-21 severe): 0 Source: Developed by Drs. Keenan Melgoza, Mandy Ocasio, Jean Laura and colleagues, with an educational joselito from [employer]. Physical exam (Primary Care) Vital Signs: Last Vital Signs Pulse 74 02/28/24 15:01 BP 110/70 02/28/24 15:01 Pulse Ox 98 02/28/24 15:01 Oxygen Delivery Method Room Air 02/28/24 15:01 Care Plan Goal for BP management: Blood pressure is in range. BMI result Body Mass Index 28.3 Tobacco/Smoking Status: Tobacco use Status Tobacco use date assessed 02/28/24 02/28/24 15:09 Patient Tobacco Use Status Never used Tobacco 02/28/24 15:09 e-Cigarette/Vaping Use Never Used 02/28/24 15:09 PHQ-9: PHQ-9 Score PHQ-9: Total score 0 02/28/24 15:09 Depression Screening Interpretation: Negative Thrive Assessment: Date of Thrive Assessment Date Thrive assessed 02/28/24 02/28/24 15:09 Currently or been in a relationship where the following occur: No concerns reported Advance Care Planning discussion: Exists, not on file Date of discussion: 02/28/24 Who was present: Patient Forms completed: Health Care Proxy Actual minutes spent: 5 Const General: cooperative and healthy appearing Nutritional Appearance: well nourished Orientation/consciousness: patient oriented x3 Limitations: no limitations HENMT Head: Yes normal to inspection Eyes General: appearance normal, both eyes and all related structures Neck Neck: Yes normal visual inspection Chest Chest palpation & inspection: normal palpation of entire chest wall Resp Effort & Inspection: normal respiratory effort Neuro General: patient oriented x3 Assessment and Plan Assessment & Plan (1) Osteoporosis: Code(s): M81.0 - Age-related osteoporosis without current pathological fracture Plan: Condition is stable. Continue current medications. (2) Hypercholesterolemia: Comment: Blood work ordered. Will call with results. Code(s): E78.00 - Pure hypercholesterolemia, unspecified Plan: Continue rosuvastatin. Physical therapy has been ordered to improve strength in her lower extremity. Very unlikely due to statin induced myopathy. (3) History of bilateral breast cancer: Code(s): Z85.3 - Personal history of malignant neoplasm of breast Plan: Condition is stable. She has now on a surveillance annually. (4) Bilateral leg pain: Comment: intermittent Code(s): M79.604 - Pain in right leg; M79.605 - Pain in left leg Plan: Very unlikely from the use of statins. However physical therapy has been ordered. Should symptoms persist, I would recommend discontinuing the statins. Orders: Orders PT Evaluation and Treatment Today M79.604 - Pain in right leg, M79.605 - Pain in left leg Medications: Refilled rosuvastatin 10 mg PO DAILY 90 tabs 1RF Coding Level of Care Code Est Pt Level 4 (89852) Complex EM visit Add On G2211 Diagnoses Osteoporosis M81.0 Hypercholesterolemia E78.00 History of bilateral breast cancer Z85.3 Bilateral leg pain M79.604; M79.605 Additional Codes Vital Signs *Quality* - Advance Care Planning discussion: Exists, not on file ([id number])
[2024-02-28 15:01] VITALS: BP 110/70; PULSE 74; O2SAT 98; BMI 28.3
== END 2024-02-28 15:39 | disposition home or self-care (01) ==
PROVIDERS: PCP Internal Medicine; Visit Provider Internal Medicine
DX: M81.0 Age-related osteoporosis without current pathological fracture (principal); E78.00 Pure hypercholesterolemia, unspecified; Z85.3 Personal history of malignant neoplasm of breast; M79.604 Pain in right leg; M79.605 Pain in left leg; Z00.00 Encounter for general adult medical examination without abnormal findings
CPT/HCPCS: 1123F; 99214

== ENCOUNTER 2024-04-30 14:59 | Outpatient (REF) | payer OTHER, SELFPAY | END 2024-04-30 15:00 | disposition home or self-care (01) | LOC: HO.BBR 14:59 | PROVIDERS: PCP Internal Medicine; Visit Provider Internal Medicine Medical Oncology | DX: D75.1 Secondary polycythemia (principal) | CPT/HCPCS: 85014; 85018; 99195 ==

== ENCOUNTER 2024-06-11 09:00 | Outpatient (RCR) | payer OTHER, SELFPAY ==
--- NOTE | 2024-05-14 15:01 | MHC.PT.EP ---
[facility] [place] Office [place] Office [place] Office [address] Aramis Phillip [address] [phone] F: [phone] F: [phone] F: [phone] F: [phone] Physical Therapy Plan of Care Date of Evaluation: 05/14/24 Date of Surgery: Diagnosis: B leg pain Assessment: 58 y/o female referred to PT with B leg pain. Of note, pt has PMH significant for breast CA 2009 and 2019, she is on Aromasin which she believes is a factor in her leg pain. Currently her pain ranges from 3-8 and she will have some days se is able to perform all tasks without pain and other days that she will reports B LE pain walking, performing martial arts, rolling in bed. Examination shows overall good strength except B glut aaron, B HS, and R gastroc-soleus complex as well as decreased quad/ ITB length. Recommend PT 1x/week for 5 weeks to address impairments, implement HEP, and optimize functional mobility. Frequency and Duration: The patient will be seen 1x/week for 5 weeks Short Term Goals: 3 weeks I with HEP Pt will be able to demonstrate R single limb bridge with level pelvis 10/10x Enrollment Consultant Goals: 5 weeks I with HEP and self management of sx Pt will reports 50% decrease in pain following exercise Pt will improve LEFS to 64/80 (IR 54/80) Treatment Plan: Modalities to reduce pain, spasms and effusion. Manual therapy to restore motion and function. Therapeutic exercise to improve strength and flexibility. Neuromuscular re-education for posture and balance. Therapeutic activities to return to functional activities of daily living. Electronically signed by: Radha Diaz PT Please sign and return to therapist. Thank you for your referral.
--- NOTE | 2024-08-09 08:38 | MHC.PT.DC ---
[facility] [place] [facility] [place] [facility] [place] [facility] [address] Aramis Phillip [address] [phone] F: [phone] F: [phone] F: [phone] F: [phone] Physical Therapy Discharge Report Diagnosis: B leg pain Date of Surgery: Date of Evaluation: 05/14/24 Date of Discharge: 08/09/24 Treatments to Date: 4 Cancellations to Date: 0 No Shows to Date: 0 Discharge Status: Achieved Goals Improved Function Independent with HEP Discharge Summary: Pt reports decreased lower back pain and I with HEP. At this time, pt d/c to I HEP. Electronically signed by: Radha Diaz PT Please sign and return to therapist. Thank you for your referral.
== END 2024-08-09 08:38 | disposition home or self-care (01) ==
LOC: HO.PTCHIC 09:00
PROVIDERS: PCP Internal Medicine; Visit Provider Internal Medicine
DX: M79.604 Pain in right leg (principal); M79.605 Pain in left leg
CPT/HCPCS: 97110; 97161

== ENCOUNTER 2024-08-30 14:58 | Outpatient (AMB) | payer OTHER, SELFPAY ==
--- NOTE | 2024-08-30 15:00 | A.OFFPC_ITS ---
Vital Signs 08/30/24 15:02 Height 5 ft 3 in Weight 166 lb 2 oz BMI 29.4 BP 106/66 Blood Pressure Location Rt brachial Position Sitting Pulse 86 Pulse Source Pulse Oximeter Pulse Oximetry (%) 96 Oxygen Delivery Method Room Air Intake Visit Reasons: 6mth f/u Intake Note: Patient is here to follow up on Hypercholesterolemia, Osteoporosis. Mud Jack Nozzleman Required: No Director Camp: Not Required per policy Accompanied by: Self / Same As Patient Allergies No Known Allergies [No Known Allergies*] Allergy (Verified 08/30/24 15:02) Tobacco use date assessed: 08/30/24 Dental Screening Dental Screen Date: 08/30/24 Did you have a dental visit in the last 12 months?: Yes Did you have a dental problem in the last 6 months where you did not have access to dental care?: No Was dental information given to patient?: Patient has dentist [facility] Medical History Family history of colon cancer Hypercholesterolemia History of bilateral breast cancer Surgical History History of left mastectomy History of colonoscopy History of umbilical hernia repair History of hysterectomy History of lumpectomy of right breast Family History Father Hypertension Mother Hypertension Colon cancer Mental health disorder Sister Kidney stone Brother High cholesterol Alcoholism Heart attack Maternal Aunt Colon cancer Other Substance use disorder Social History Household Members: Spouse Housing: House Are you a primary rn critical care to a significant other at home: No Do you presently have visiting nurse or other home services: No Alcohol intake: current Alcohol intake frequency: other Alcohol type: wine Patient Tobacco Use Status: Never used Tobacco e-Cigarette/Vaping Use: Never Used Second Hand Smoke Exposure: No service: No Current occupational status: employed Cognitive needs: No Hearing needs: No Vision needs: Yes (glasses) Questionnaire PHQ-9 Over the last 2 weeks, how often have you been bothered by any of the following problems? 1. Little interest or pleasure in doing things: not at all 2. Feeling down, depressed, or hopeless: not at all 3. Trouble falling or staying asleep, or sleeping too much: not at all 4. Feeling tired or having little energy: not at all 5. Poor appetite or overeating: not at all 6. Feeling bad about yourself - or that you are a failure or have let yourself or your family down: not at all 7. Trouble concentrating on things, such as reading the newspaper or watching television: not at all 8. Moving or speaking so slowly that other people could have noticed. Or the opposite - being so fidgety or restless that you have been moving around a lot more than usual: not at all 9. Thoughts that you would be better off or of hurting yourself in some way: not at all Total score: 0 Depression Screening Interpretation: Negative Depression Screening Done: Yes Source: Developed by Drs. Keenan Melgoza, Mandy Ocasio, Jean Laura and colleagues, with an educational joselito from [email or web address]. Thrive Questionnaire Date Thrive assessed: 08/30/24 I am a: Patient What is your living situation today?: I have a steady place to live Within the past 12 months, did the food you bought not last and you didn't have the money to get more?: Never true Within the past 12 months, did you worry whether your food would run out before you got money to buy more?: Never true Do you have trouble paying for medicines?: No Do you have trouble getting transportation to medical appointments?: No Do you have trouble paying your heating and electricity bill?: No Do you have trouble taking care of your child, family member or friend?: No Do you have trouble with day-to-day activities such as bathing, preparing meals, shopping, managing finances, etc.?: No Are you currently unemployed and looking for a job?: No Are you interested in more education?: No Please select the resources that you would like help with: None Currently or been in a relationship where the following occur: No concerns reported THRIVE Score: 0 AUDIT C Alcohol Use Questionnaire (AUDIT-C) 1. How often do you have a drink containing alcohol?: 2-4 times a month 2. How many drinks containing alcohol do you have on a typical day when you are drinking?: 1 or 2 3. How often do you have six or more drinks on one occasion?: Never Total Score: 2 REGULO-7 AMB Questionnaire REGULO-7 Date REGULO - 7 assessed: 08/30/24 Feeling nervous, anxious, or on edge: 0 = Not at all Not being able to stop or control worryin = Not at all Worrying too much about different things: 0 = Not at all Trouble relaxin = Not at all Being so restless that it is hard to sit still: 0 = Not at all Becoming easily annoyed or irritable: 0 = Not at all Feeling afraid as if something awful might happen: 0 = Not at all Total REGULO-7 score (0-4 normal; 5-9 mild; 10-14 moderate; 15-21 severe): 0 Source: Developed by Drs. Keenan Melgoza, Mandy Ocasio, Jean Laura and colleagues, with an educational joselito from [email or web address]. Physical exam (Primary Care) Vital Signs: Last Vital Signs Pulse 86 08/30/24 15:02 BP 106/66 08/30/24 15:02 Pulse Ox 96 08/30/24 15:02 Oxygen Delivery Method Room Air 08/30/24 15:02 BMI result Body Mass Index 29.4 Tobacco/Smoking Status: Tobacco use Status Tobacco use date assessed 08/30/24 08/30/24 15:07 Patient Tobacco Use Status Never used Tobacco 08/30/24 15:07 e-Cigarette/Vaping Use Never Used 08/30/24 15:07 PHQ-9: PHQ-9 Score PHQ-9: Total score 0 08/30/24 15:07 Depression Screening Interpretation: Negative Thrive Assessment: Date of Thrive Assessment Date Thrive assessed 08/30/24 08/30/24 15:07 Currently or been in a relationship where the following occur: No concerns reported Coding Level of Care Code Est Pt Level 4 (62895) Complex EM visit Add On G2211 Diagnoses Breast cancer C50.919 Assessment & Plan Assessment & Plan (1) Breast cancer: Code(s): C50.919 - Malignant neoplasm of unspecified site of unspecified female breast Plan: History of Present Illness The patient is a 59-year-old female presenting with a wellness visit and routine surveillance of her chronic conditions, specifically essential hypertension. The patient noted that her blood pressure has been stable and controlled, with no reported adverse events or complications. She is nearing the completion of a five-year course of treatment for breast cancer, with the treatment concluding on January 01. Management to date has been effective, and she has not indicated any exacerbations or notable issues since starting treatment. She looks forward to discontinuing the medication soon. There were no specific inciting events or alleviating factors mentioned for her conditions during this visit. Social History - Lives as part of a three-generation family, recently including a [id number]. - Actively involved in family activities, such as playing [employer] during [place]. - No other social determinants of health were discussed. Review of Systems - Cardiovascular: Reports stable blood pressure management. - Dermatologic: Reports nearing the completion of treatment for chronic eczema. Physical Exam General: Cooperative and healthy appearing Nutritional Appearance: Well nourished Orientation/consciousness: Patient oriented x3 Limitations: No limitations Head: Normal to inspection General: Appearance normal, both eyes and all related structures Neck: Normal visual inspection Chest: Normal palpation of entire chest wall Respiratory: Normal respiratory effort Neurology: Patient oriented x3 Results Plan - Continue monitoring blood pressure to ensure it remains controlled. - Plan to discontinue eczema treatment on January 01, as previously determined. - Scheduled a follow-up visit in six months to reassess and monitor conditions. Patient was informed and verbally consented to the use of an ambient scribe for clinic note documentation during this visit. Discussion Notes During the visit, I confirmed that the patient's blood pressure management is effective with no new symptoms or complications. We discussed the completion of her treatment for eczema in December, and she expressed satisfaction with the progress. I reiterated the importance of regular monitoring of her blood pressure to maintain health stability. The patient was pleased with the holiday experiences and her participation in familial activities, which contributes positively to her social and emotional well-being. Patient Instructions - Continue current blood pressure management routine. - Prepare for the discontinuation of eczema treatment on January 01. - Return for routine follow-up in six months. - Engage in family activities that enhance social and emotional wellness. - Monitor for any new symptoms and seek care if needed.
[2024-08-30 15:02] VITALS: BP 106/66; PULSE 86; O2SAT 96; BMI 29.4
== END 2024-08-30 15:37 | disposition home or self-care (01) ==
PROVIDERS: PCP Internal Medicine; Visit Provider Internal Medicine
DX: C50.919 Malignant neoplasm of unspecified site of unspecified female breast (principal)

== ENCOUNTER 2024-10-29 13:13 | Outpatient (REF) | payer OTHER, SELFPAY | END 2024-10-29 13:14 | disposition home or self-care (01) | LOC: HO.MAMMO 13:13 | PROVIDERS: PCP Internal Medicine; Visit Provider Internal Medicine | DX: Z12.31 Encounter for screening mammogram for malignant neoplasm of breast (principal) | CPT/HCPCS: 77063; 77067 ==

== ENCOUNTER → 2024-10-29 13:30 | Outpatient (BNV) | payer OTHER, SELFPAY | PROVIDERS: PCP Internal Medicine; Visit Provider Internal Medicine | DX: Z12.31 Encounter for screening mammogram for malignant neoplasm of breast (principal) | CPT/HCPCS: 77063; 77067 ==

== ENCOUNTER 2024-10-29 14:46 | Outpatient (REF) | payer OTHER, SELFPAY | END 2024-10-29 14:47 | disposition home or self-care (01) | LOC: HO.BBR 14:46 | PROVIDERS: PCP Internal Medicine; Visit Provider Internal Medicine Medical Oncology | DX: D75.1 Secondary polycythemia (principal) | CPT/HCPCS: 85018; 99195 ==

== ENCOUNTER 2024-11-12 09:03 | Outpatient (AMB) | payer OTHER, SELFPAY ==
--- NOTE | 2024-11-12 09:06 | A.OFFVIS_ITS ---
Vital Signs 11/12/24 09:11 Height 5 ft 3 in Weight 161 lb BMI 28.5 BP 120/77 Blood Pressure Location Lt brachial Position Sitting Pulse 68 Intake Visit Reasons: Yearly breast exam Intake Note: Patient is seen in office for yearly breast exam. Pt c/o: denies any concerns regarding the breast mm:10/29/24 Intellectual Property Paralegal Required: No Refrigeration Service Technician: Refrigeration Service Technician Present Accompanied by: Self / Same As Patient Allergies No Known Allergies [No Known Allergies*] Allergy (Verified 11/12/24 09:12) Medication List - Last Reconciled 11/12/24 by Miguel Carbajal MD ascorbic acid (vitamin C) ER (Vitamin C ER) 500 mg PO DAILY [id number] 20-250-50(d)/20 -200-10 mg (n) (Black Cohosh Menopause Complex) 1 ea PO DAILY bromelains 200 mg PO DAILY calcium carbonate 500 mg PO DAILY cholecalciferol (vitamin D3) (Vitamin D3) 10 mcg PO DAILY citalopram 10 mg PO DAILY exemestane 25 mg PO DAILY magnesium 200 mg PO DAILY multivitamin 1 tab PO DAILY rosuvastatin 10 mg PO DAILY HPI HPI Yearly breast exam: Details: She is here for follow-up for history of breast cancer. She had a lumpectomy and sentinel biopsy for her right breast cancer in 2009, and a mastectomy with sentinel node biopsy as well in 2019 for left breast cancer. She is still on exemestane. She says she still has about 47 days before she finishes this. She says she is doing quite well and denies significant complaints. She had her yearly mammogram for the right breast last 10/30/2023. I have reviewed this and this was unremarkable and she is scheduled to have this once a year. [facility] Medical History Family history of colon cancer Hypercholesterolemia History of bilateral breast cancer Surgical History History of left mastectomy History of colonoscopy History of umbilical hernia repair History of hysterectomy History of lumpectomy of right breast Family History Father Hypertension Mother Hypertension Colon cancer Mental health disorder Sister Kidney stone Brother High cholesterol Alcoholism Heart attack Maternal Aunt Colon cancer Other Substance use disorder Social History Household Members: Spouse Housing: House Are you a primary auto care center manager to a significant other at home: No Do you presently have visiting nurse or other home services: No Alcohol intake: current Alcohol intake frequency: other Alcohol type: wine Patient Tobacco Use Status: Never used Tobacco e-Cigarette/Vaping Use: Never Used Second Hand Smoke Exposure: No service: No Current occupational status: employed Cognitive needs: No Hearing needs: No Vision needs: Yes (glasses) Review of Systems Const Denies chills and Denies fever(s) Card Denies chest pain, Denies dyspnea and Denies dyspnea on exertion Resp Denies cough, Denies dyspnea and Denies dyspnea on exertion GI Denies hematochezia and Denies change in bowel habits Denies hematuria Musc Denies back pain and Denies limited range of motion Neuro Denies focal weakness and Denies convulsions Psych Denies depression and Denies mood swings Physical Exam Vital Signs: Last Vital Signs Pulse 68 11/12/24 09:11 BP 120/77 11/12/24 09:11 BMI result Body Mass Index 28.5 Const General: comfortable and no acute distress Orientation/consciousness: patient oriented x3 Neck Neck: Yes no lymphadenopathy Chest Other: No palpable masses on the chest wall of the mastectomy site No palpable mass on the right breast No axillary lymphadenopathy on either side Resp Auscultation: clear to auscultation bilaterally Cardio Rhythm: regular rhythm GI Palpation (GI): Soft to palpation, nontender and no guarding Neuro General: patient oriented x3 Assessment & Plan Assessment & Plan (1) History of bilateral breast cancer: Code(s): Z85.3 - Personal history of malignant neoplasm of breast Category: Medical Plan: She continues to do very well. Current examination does not reveal any suggestion of local recurrence. Her mammogram 2 weeks ago was also unremarkable She will be finishing her course of exemestane in about 2 months I will see her again in the office next year. I emphasized to her the importance of yearly screening mammograms for the other breast. Coding Level of Care Code Est Pt Level 3 (39641) Complex EM visit Add On G2211 Diagnoses History of bilateral breast cancer Z85.3
[2024-11-12 09:11] VITALS: BP 120/77; PULSE 68; BMI 28.5
== END 2024-11-12 09:33 | disposition home or self-care (01) ==
LOC: HO.HGS 09:04
PROVIDERS: PCP Internal Medicine; Visit Provider Surgery
DX: Z85.3 Personal history of malignant neoplasm of breast (principal)
CPT/HCPCS: 99213

== ENCOUNTER → 2024-11-12 09:03 | Outpatient (BNVA) | payer OTHER, SELFPAY | PROVIDERS: PCP Internal Medicine; Visit Provider Surgery ==

== ENCOUNTER 2025-02-28 13:51 | Outpatient (AMB) | payer OTHER, SELFPAY ==
--- NOTE | 2025-02-28 13:59 | MHC.PC.OV ---
Vital Signs 02/28/25 14:06 Height 5 ft 3 in Weight 165 lb 6 oz BMI 29.3 BP 110/78 Blood Pressure Location Lt brachial Position Sitting Pulse 82 Pulse Source Pulse Oximeter Temp 97.1 F Temp Source Temporal Artery Scan Pulse Oximetry (%) 96 Oxygen Delivery Method Room Air Intake Visit Reasons: 6 month f/u Reproductive Endocrinologist Required: No Accompanied by: Self / Same As Patient Allergies No Known Allergies (No Known Allergies*) Allergy (Verified 02/28/25 13:59) Tobacco use date assessed: 08/30/24 Dental Screening Dental Screen Date: 08/30/24 [facility] Medical History (Updated 02/28/25 @ 14:30 by Dereck Bettencourt MD) Breast cancer Family history of colon cancer Hypercholesterolemia History of bilateral breast cancer Surgical History (Updated 12/04/24 @ 10:24 by Angela Swenson) History of left mastectomy History of colonoscopy (~11/09/22) History of umbilical hernia repair History of hysterectomy History of lumpectomy of right breast Family History Father Hypertension Mother Hypertension Colon cancer Mental health disorder Sister Kidney stone Brother High cholesterol Alcoholism Heart attack Maternal Aunt Colon cancer Other Substance use disorder Social History Household Members: Spouse Housing: House Are you a primary nursing care attendant to a significant other at home: No Do you presently have visiting nurse or other home services: No Alcohol intake: current Alcohol intake frequency: other Alcohol type: wine Patient Tobacco Use Status: Never used Tobacco e-Cigarette/Vaping Use: Never Used Second Hand Smoke Exposure: No service: No Current occupational status: employed Cognitive needs: No Hearing needs: No Vision needs: Yes (glasses) Questionnaire PHQ-9 Over the last 2 weeks, how often have you been bothered by any of the following problems? 1. Little interest or pleasure in doing things: not at all 2. Feeling down, depressed, or hopeless: not at all 3. Trouble falling or staying asleep, or sleeping too much: not at all 4. Feeling tired or having little energy: not at all 5. Poor appetite or overeating: not at all 6. Feeling bad about yourself - or that you are a failure or have let yourself or your family down: not at all 7. Trouble concentrating on things, such as reading the newspaper or watching television: not at all 8. Moving or speaking so slowly that other people could have noticed. Or the opposite - being so fidgety or restless that you have been moving around a lot more than usual: not at all 9. Thoughts that you would be better off or of hurting yourself in some way: not at all Total score: 0 Depression Screening Interpretation: Negative Depression Screening Done: Yes 73592 - PHQ-9 Billing: Yes Source: Developed by Drs. Keenan Melgoza, Mandy Ocasio, Jean Laura and colleagues, with an educational joselito from [employer]. Thrive Questionnaire Date Thrive assessed: 02/28/25 I am a: Patient What is your living situation today?: I have a steady place to live Within the past 12 months, did the food you bought not last and you didn't have the money to get more?: Never true Within the past 12 months, did you worry whether your food would run out before you got money to buy more?: Never true Do you have trouble paying for medicines?: No Do you have trouble getting transportation to medical appointments?: No Do you have trouble paying your heating and electricity bill?: No Do you have trouble taking care of your child, family member or friend?: No Do you have trouble with day-to-day activities such as bathing, preparing meals, shopping, managing finances, etc.?: No Are you currently unemployed and looking for a job?: No Are you interested in more education?: No Please select the resources that you would like help with: None Currently or been in a relationship where the following occur: No concerns reported THRIVE Score: 0 AUDIT C Alcohol Use Questionnaire (AUDIT-C) 1. How often do you have a drink containing alcohol?: 2-4 times a month 2. How many drinks containing alcohol do you have on a typical day when you are drinking?: 1 or 2 3. How often do you have six or more drinks on one occasion?: Never Total Score: 2 REGULO-7 AMB Questionnaire REGULO-7 Date REGULO - 7 assessed: 02/28/25 Feeling nervous, anxious, or on edge: 0 = Not at all Not being able to stop or control worryin = Not at all Worrying too much about different things: 0 = Not at all Trouble relaxin = Not at all Being so restless that it is hard to sit still: 0 = Not at all Becoming easily annoyed or irritable: 0 = Not at all Feeling afraid as if something awful might happen: 0 = Not at all Total REGULO-7 score (0-4 normal; 5-9 mild; 10-14 moderate; 15-21 severe): 0 Source: Developed by Drs. Keenan Melgoza, Mandy Ocasio, Jean Laura and colleagues, with an educational joselito from [employer]. REGULO-7 Assessment Billing REGULO-7 Assessment Tool: REGULO-7 Assessment 66092 Physical exam (Primary Care) Vital Signs: Last Vital Signs Temp 97.1 F 02/28/25 14:06 Pulse 82 02/28/25 14:06 BP 110/78 02/28/25 14:06 Pulse Ox 96 02/28/25 14:06 Oxygen Delivery Method Room Air 02/28/25 14:06 BMI result Body Mass Index 29.3 Tobacco/Smoking Status: Tobacco use Status Tobacco use date assessed 08/30/24 02/28/25 13:59 Patient Tobacco Use Status Never used Tobacco 02/28/25 13:59 e-Cigarette/Vaping Use Never Used 02/28/25 13:59 PHQ-9: PHQ-9 Score PHQ-9: Total score 0 02/28/25 13:59 Depression Screening Interpretation: Negative Thrive Assessment: Date of Thrive Assessment Date Thrive assessed 02/28/25 02/28/25 13:59 Currently or been in a relationship where the following occur: No concerns reported Coding Level of Care Code Est Pt Level 4 (10182) Complex EM visit Add On G2211 Diagnoses Hypercholesterolemia E78.00 Breast cancer C50.919 Additional Codes REGLUO-7 Assessment Billing - REGULO-7 Assessment Tool: REGULO-7 Assessment 98359 ([id number]) PHQ-9 - 56564 - PHQ-9 Billing: Yes ([id number]) Assessment & Plan Assessment & Plan (1) Hypercholesterolemia: Comment: Blood work ordered. Will call with results. Code(s): E78.00 - Pure hypercholesterolemia, unspecified Category: Medical Plan: Pt has stopped the statins, if LDL is elevated has agreed to restart them (2) Breast cancer: Code(s): C50.919 - Malignant neoplasm of unspecified site of unspecified female breast Category: Medical Plan: 5 yrs treatment with exemestane completed. She also stopped the SSRI and feels no need for it now. Plan History of Present Illness - The patient is a 59-year-old female presenting with a wellness visit and medication review. - The patient discontinued exemestane and citalopram in November due to side effects, including leg pain. - Rosuvastatin was stopped two months prior to November due to leg pain, and the patient has not restarted it. - The patient is considering restarting rosuvastatin pending cholesterol levels, which were last checked in November. - The patient reports no current pain and has increased physical activity since stopping exemestane. 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 - Recently traveled to [facility] with her grandchild, indicating active family involvement and travel. Review of Systems - Musculoskeletal: Denies current leg pain. Physical Exam General: Cooperative and healthy appearing Nutritional Appearance: Well nourished Orientation/consciousness: Patient oriented x3 Limitations: No limitations Head: Normal to inspection General: Appearance normal, both eyes and all related structures Neck: Normal visual inspection Chest: Normal palpation of entire chest wall Respiratory: N ormal respiratory effort Neurology: Patient oriented x3, no pains reported Results Plan 1. Discontinuation Of Exemestane And Citalopram - The patient has stopped exemestane and citalopram due to side effects, including leg pain. 2. Discontinuation Of Rosuvastatin Due To Leg Pain - The patient discontinued rosuvastatin due to leg pain and is considering restarting it based on cholesterol levels. 3. Cholesterol Management And Monitoring - The patient is awaiting cholesterol test results to determine the need for restarting rosuvastatin. Discussion Notes The patient and I discussed her recent discontinuation of exemestane, citalopram, and rosuvastatin due to side effects, primarily leg pain. We agreed to monitor her cholesterol levels to decide on the necessity of restarting rosuvastatin. I advised her to follow up in six months and to complete the lab work as discussed. Patient Instructions - Complete the lab work as discussed, ensuring to fast for 12 hours before the test. - Follow up in six months for a routine check-up.
[2025-02-28 14:06] VITALS: BP 110/78; PULSE 82; TEMP 36.2; O2SAT 96; BMI 29.3
== END 2025-02-28 14:26 | disposition home or self-care (01) ==
LOC: HO.HMCH 13:52
PROVIDERS: PCP Internal Medicine; Visit Provider Internal Medicine
DX: E78.00 Pure hypercholesterolemia, unspecified (principal); C50.919 Malignant neoplasm of unspecified site of unspecified female breast

== ENCOUNTER → 2025-02-28 13:51 | Outpatient (BNVA) | payer OTHER, SELFPAY | PROVIDERS: PCP Internal Medicine; Visit Provider Internal Medicine | DX: E78.00 Pure hypercholesterolemia, unspecified (principal); Z85.3 Personal history of malignant neoplasm of breast; Z90.12 Acquired absence of left breast and nipple | CPT/HCPCS: 96127 ==

== ENCOUNTER 2025-03-16 07:29 | Outpatient (REF) | payer OTHER, SELFPAY ==
[2025-03-16 08:50] LABS: Hematocrit 45.0 % (37.0-47.0); Hemoglobin 15.2 g/dl (12.0-16.0); Mean Corpuscular HGB Conc 33.8 g/dl (31.0-35.0); Mean Corpuscular Hemoglobin 30.2 pg (27.0-33.0); Mean Corpuscular Volume 89.3 fL (80.0-98.0); NRBC Abs Auto 0.000 X10*3/uL (0.0-0.012); NRBC Pct Auto 0.0 /100WBC (0.0-0.2); Platelet Count 235 X10*3/uL (160-400); Red Blood Count 5.04 X10*6/uL (4.20-5.50); White Blood Count 4.9 X10*3/uL (4.8-10.8)
[2025-03-16 09:02] LABS: Appearance Urine Clear; Glucose Urine UA Negative (Negative); PH 5.0 (5.0-9.0); Specific Gravity - Urine 1.025 (1.005-1.025); UMIC TRIGGER UA YES
[2025-03-16 09:22] LABS: Alanine Aminotransferase 23 U/L (0-31); Albumin Level 4.5 g/dL (3.5-5.0); Alkaline Phosphatase 47 U/L (39-117); Anion Gap 13 (12-20); Aspartate Amino Transferase 20 U/L (5-31); Blood Urea Nitrogen 13 mg/dL (9-16); Calcium 9.7 mg/dL (8.4-10.2); Carbon Dioxide 26 mmol/L (22-29); Chloride 110 mmol/L (96-108); Cholesterol 310 mg/dL (<200); Estimated Glomerular Filt Rate > 60; HDL Cholesterol 52 mg/dL (>40); Potassium 4.7 mmol/L (3.3-5.1); Sodium 144 mmol/L (135-145); Total Protein 7.2 g/dL (6.5-8.0); Triglycerides 116 mg/dL (<150)
[2025-03-16 09:36] LABS: Thyroid Stimulating Hormone 0.97 uIU/mL (0.32-4.0)
== END 2025-03-16 07:30 | disposition home or self-care (01) ==
LOC: HO.LAB 07:29
PROVIDERS: PCP Internal Medicine; Visit Provider Internal Medicine
DX: E78.00 Pure hypercholesterolemia, unspecified (principal)
CPT/HCPCS: 36415; 80048; 80061; 80076; 81001; 81003; 84443; 85027

== ENCOUNTER 2025-06-04 09:01 | Outpatient (REF) | payer OTHER, SELFPAY ==
--- NOTE | ~2025-06-04 | MM_ITS ---
EXAMINATION: DXA BONE DENSITY AXIAL HISTORY: Osteopenia, on aromatase inhibitor. TECHNIQUE: iClinical Dual energy absorptiometry (DEXA) of the lumbar spine, total left hip, and femoral neck was performed. COMPARISON: Comparison is made with the prior examination dated 03/29/2023. FINDINGS: The bone mineral density of the lumbar spine is 1.109 g/cm2, corresponding to a T-score of -0.6, and a Z-score of 0.4. This is indicative of normal bone mineral density. This represents a BMD change of 8.9% compared to the prior exam. This is statistically significant. The bone mineral density of the left total hip is 1.006 g/cm2, corresponding to a T-score of 0.0, and a Z-score of 0.7. This is indicative of normal bone mineral density. This represents a BMD change of 28.6% compared to the prior exam. This is statistically significant. The bone mineral density of the left femoral neck is 0.962 g/cm2, corresponding to a T-score of -0.5, and a Z-score of 0.5. This is indicative of normal bone mineral density. This represents a BMD change of 27.2% compared to the prior exam. MM/XR DEXA axial skeleton IMPRESSION: Based on bone mineral density, and according to World Health Organization (WHO) criteria, the diagnosis is consistent with normal bone mineral density. Statistically, 68% of repeat scans fall within 1 SD (+/- 0.010 g/cm2 for AP spine L1-L4) and 1 SD (+/- 0.012 g/cm2 for femur total) [employer] is a trademark of the [employer] [employer] [employer], a World Health Organization (WHO) Collaborating Center. Electronically signed by: Keenan Burger MD 06/04/2025 09:31 AM EDT
== END 2025-06-04 09:02 | disposition home or self-care (01) ==
LOC: HO.MAMMO 09:01
PROVIDERS: PCP Internal Medicine; Visit Provider Internal Medicine Medical Oncology
DX: M81.0 Age-related osteoporosis without current pathological fracture (principal)
CPT/HCPCS: 77080

== ENCOUNTER → 2025-06-04 09:15 | Outpatient (BNV) | payer OTHER, SELFPAY | PROVIDERS: PCP Internal Medicine; Visit Provider Radiology Diagnostic Radiology | DX: E28.39 Other primary ovarian failure (principal) | CPT/HCPCS: 77080 ==

== ENCOUNTER 2025-06-10 09:08 | Outpatient (REF) | payer OTHER, SELFPAY | END 2025-06-10 09:09 | disposition home or self-care (01) | LOC: HO.BBR 09:08 | PROVIDERS: Visit Provider Internal Medicine Medical Oncology | DX: D75.1 Secondary polycythemia (principal) | CPT/HCPCS: 85018; 99195 ==